=== PATIENT | female | born 1960 | race Caucasian/White ===

== ENCOUNTER → 2016-12-16 | Outpatient (CLI) | payer BC ==
[~2016-12-16] MED LIST: BNC5 PO; CHOL1TAB42 PO; CHOL20009 PO; COCO1OIL2 PO; DICLOFENAC PO; FENO1TAB PO; FEXO1TAB49 PO; MAGN1CAP2 PO; MULTTAB58 PO; OMEGCAP2 PO; PYRI100T4 PO; VENL-271 PO
--- NOTE | 2016-12-16 10:30 | DIAGNOSTIC IMAGING REPORT ---
LEFT KNEE 1 OR 2 VIEWS ROUTINE CLINICAL HISTORY: Left knee pain COMPARISON: None. DISCUSSION: There are mild osteophytic changes present. There are no acute fractures. There are no erosive or destructive changes. IMPRESSION: Mild osteoarthritic change. Electronically signed by: Ernie Tyson M.D. 12/16/2016 10:29 AM Dictated Date/Time: 12/16/2016 10:28 AM
--- NOTE | 2016-12-16 10:32 | DIAGNOSTIC IMAGING REPORT ---
LEFT HIP UNILATERAL 2 VIEWS CLINICAL HISTORY: Left hip pain COMPARISON: None. DISCUSSION: 2 views reveal no fractures. Minimal degenerative changes are present. No destructive lesions are visualized. IMPRESSION: 1. Minimal degenerative change. No destructive lesions are visualized. Electronically signed by: Ernie Tyson M.D. 12/16/2016 10:31 AM Dictated Date/Time: 12/16/2016 10:30 AM
[2016-12-16 12:31] LABS: CHOLESTEROL/HDL RATIO 4.4
== END | disposition home or self-care (01) ==
LOC: C.RAD 09:46
PROVIDERS: ATTEND Family Medicine
DX: M25.562 Pain in left knee (principal)

== ENCOUNTER → 2017-01-03 | Outpatient (CLI) | payer BC ==
--- NOTE | 2017-01-03 13:24 | MAMMOGRAPHY REPORT ---
BILATERAL DIGITAL SCREENING MAMMOGRAM TOMOSYNTHESIS WITH CAD: 01/03/2017 TECHNIQUE: Breast tomosynthesis in addition to standard 2D mammography was performed. Current study was also evaluated with a Computer Aided Detection (CAD) system. COMPARISON: Comparison is made to exams dated: 01/01/2016 mammogram, 12/31/2014 mammogram, 12/25/2012 m ammogram, 12/20/2011 mammogram, 12/23/2011 mammogram, and 10/27/2010 mammogram - [facility] enter. BREAST COMPOSITION: There are scattered areas of fibroglandular density in both breasts. FINDINGS: No suspicious masses, calcifications, or areas of architectural distortion are noted in e ither breast. There has been no significant interval change compared to prior exams. IMPRESSION: ACR BI-RADS CATEGORY 1: NEGATIVE There is no mammographic evidence of malignancy. A 1 year screening mammogram is recommended. The p atient will receive written notification of the results. Approximately 10% of breast cancers are not detected with mammography. A negative mammographic repor t should not delay biopsy if a clinically suggestive mass is present. Lizzeth Haddad M.D. ah/:01/03/2017 10:01:20 Chisel Mortiser Operator: Brianna GARCIA(Robert)(Balwinder), [facility] letter sent: Normal 1/2 BI-RADS Code: ACR BI-RADS Category 1: Negative
== END | disposition home or self-care (01) ==
LOC: C.MAMM 08:59
PROVIDERS: ATTEND Obstetrics & Gynecology
DX: Z12.31 Encounter for screening mammogram for malignant neoplasm of breast (principal)

== ENCOUNTER → 2017-03-14 | Outpatient (CLI) | payer BC | END | disposition home or self-care (01) | LOC: C.RDSM 12:13 | PROVIDERS: ATTEND Family Medicine Sports Medicine | DX: M25.511 Pain in right shoulder (principal) ==

== ENCOUNTER → 2017-05-02 | Outpatient (CLI) | payer BC ==
--- NOTE | 2017-05-02 11:25 | DIAGNOSTIC IMAGING REPORT ---
MRI right shoulder RIGHT UPPER EXT JOINT WITHOUT CLINICAL HISTORY: R SHOULDER PAIN,ROTATOR CUFF STRAIN Right pain TECHNIQUE: MRI multi axial acquisition COMPARISON STUDY: None FINDINGS: Signal characteristics the osseous structures indicate hypertrophic change of the acromioclavicular joint. Discrete mild impingement upon the supraspinatus musculotendinous junction. Findings of moderate tendinopathy involving the supraspinatus tendon. There is a small partial thickness tear of its inferior surface. The subscapularis and infraspinatus tendons appear unremarkable. Evaluation of the labrum shows degenerative change of the anterior margin of the glenoid labrum with a partial thickness tear. Posterior labrum as well as inferior labrum does appear unremarkable. Biceps tendon is intact within the bicipital groove. There is a small amount of fluid surrounding the biceps tendon. IMPRESSION: 1. Hypertrophic change acromioclavicular joint creating mild impingement upon the supraspinatus scattered tendinous junction. 2. Moderate tendinopathy of the supraspinatus with a small partial thickness tear inferior surface. 3. Moderate deterioration anterior glenoid labrum with a superimposed partial tear at its superior aspect. 4. Small joint effusion. Electronically signed by: Johan Dior M.D. 05/02/2017 11:24 AM Dictated Date/Time: 05/02/2017 11:13 AM
== END | disposition home or self-care (01) ==
LOC: C.MRI 09:53
PROVIDERS: ATTEND Family Medicine Sports Medicine
DX: S46.011D Strain of muscle(s) and tendon(s) of the rotator cuff of right shoulder, subsequent encounter (principal); M25.511 Pain in right shoulder; X58.XXXA Exposure to other specified factors, initial encounter

== ENCOUNTER 2017-06-26 10:01 | Day surgery (SDC) | payer BC ==
[2017-06-21 12:44] LABS: MEAN CELL VOLUME 93.7 fL (80-100); MEAN CORPUSCULAR HEMOGLOBIN 30.9 pg (25-34); MEAN PLATELET VOLUME 8.9 fL (7.4-10.4); PLATELET COUNT 466 K/uL (130-400); RED BLOOD COUNT 4.27 M/uL (4.2-5.4); WHITE BLOOD COUNT 5.81 K/uL (4.8-10.8)
[~2017-06-26] VITALS: Ht 172.7 cm; Wt 90.9 kg
[~2017-06-26 10:01] MED LIST changes: +BUPIVACAINE/EPINEPHRINE 0.25% 10 ML VIAL ONE; -CHOL20009 PO; +CLINDAMYCIN 600 MG/54 ML D5W 54 ML IV SCH; +CLONIDINE HCL 100 MCG/ML SYRINGE ONE; +LACTATED RINGER'S 1000ML 1,000 ML IV SCH; +LACTATED RINGER'S 1000ML IV SCH; -MAGN1CAP2 PO; -MULTTAB58 PO; -OMEGCAP2 PO; -PYRI100T4 PO; +ROPIVACAINE 0.5% 5 MG/ML 30 ML VIAL ONE
[2017-06-26 10:40] VITALS: BP 130/79; PULSE 80; TEMP 36.8; O2SAT 95; Ht 172.7 cm; Wt 90.9 kg
[2017-06-26] MEDS ORDERED: FENTANYL CITRATE INJ 50 MCG/1 ML 2 ML VIAL ONE ×4 (11:02→15:49)
[2017-06-26] MEDS ORDERED: MIDAZOLAM HCL 1 MG/ML 2ML VIAL ONE (11:02)
[2017-06-26] MEDS ORDERED: SCOPOLAMINE 1.5 MG TDSY TD ONE (11:53)
[2017-06-26] MEDS ORDERED: EpINEphrine HCL INJ 1 MG/ML 5ML SYRINGE ONE (12:06)
[2017-06-26] MEDS ORDERED: SODIUM CHLORIDE 0.9% PF 50 ML VIAL ONE (12:18)
[2017-06-26] MEDS ORDERED: SODIUM CHLORIDE 0.9% INJ 10 ML VIAL ONE (12:18)
[2017-06-26] MEDS ORDERED: DEXAMETHASONE SOD INJ 4 MG/ML VIAL ONE (12:46)
[2017-06-26] MEDS ORDERED: GLYCOPYRROLATE INJ 0.2 MG/ML VIAL ONE (12:46)
[2017-06-26] MEDS ORDERED: NEOSTIGMINE METHYLSULFATE 5 MG/5 ML SYR ONE (12:46)
[2017-06-26] MEDS ORDERED: ROCURONIUM BROMIDE 10 MG/ML 5 ML VIAL ONE (12:46)
[2017-06-26] MEDS ORDERED: ONDANSETRON INJ 2 MG/ML 2 ML VIAL ONE (12:46)
[2017-06-26] MEDS ORDERED: PROPOFOL IV EMULSION 10 MG/ML 20 ML VIAL IV ONE (12:46)
--- NOTE | 2017-06-26 12:47 | History & Physical Bridge Note ---
H&P Re-Evaluation Bridge Note: I have examined the patient, reviewed the History & Physical and in the interval since the performance of the History & Physical I have noted the following changes of clinical significance: No changes noted
[2017-06-26] MEDS ORDERED: PHENYLEPHRINE 100MCG/ML 5ML SYR ONE (14:21)
[2017-06-26] MEDS ORDERED: KETOROLAC TROMETHAMINE 30 MG/ML VIAL ONE (14:32)
[2017-06-26] MEDS ORDERED: HYDROmorphone INJ 2 MG/ML SYR/VIAL ONE (14:32)
[2017-06-26] MEDS ORDERED: ATROPINE SULFATE 0.1 MG/ML 5ML SYR IV PRN (15:15)
[2017-06-26] MEDS ORDERED: FENTANYL CITRATE INJ 50 MCG/1 ML 2 ML VIAL IV PRN (15:15)
[2017-06-26] MEDS ORDERED: NALOXONE HCL 0.4 MG/1 ML VIAL/CARP IV PRN (15:15)
[2017-06-26] MEDS ORDERED: EpHEDrine SULFATE INJ 50 MG/ML AMP IV PRN (15:15)
[2017-06-26] MEDS ORDERED: MEPERIDINE HCL 25 MG/ML CARP IV PRN (15:15)
[2017-06-26] MEDS ORDERED: LABETALOL HCL IV 5 MG/ML 20ML IV PRN (15:15)
[2017-06-26] MEDS ORDERED: ONDANSETRON INJ 2 MG/ML 2 ML VIAL IV PRN ×2 (15:15→15:30)
[2017-06-26] MEDS ORDERED: FLUMAZENIL 0.1 MG/1 ML 10 ML VIAL IV PRN (15:15)
[2017-06-26] MEDS ORDERED: HYDROmorphone INJ 2 MG/ML SYR/VIAL IV PRN (15:15)
[2017-06-26] MEDS ORDERED: PHENYLEPHRINE 100MCG/ML 5ML SYR IV PRN (15:15)
[2017-06-26] MEDS ORDERED: OXYCODONE/ACETAMINOPHEN 5-325 TAB PO PRN (15:30)
[2017-06-26] MEDS ORDERED: HYDROmorphone INJ 0.5 MG/0.5 ML SYR IV PRN (15:30)
--- NOTE | 2017-06-26 15:38 | [facility] Post Operative Brief Note ---
Immediate Operative Summary Operative Date Jun 26, 2017. 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 2) Loose Body Removal. 3) Open Distal Clavicle Excision. 4) Biceps Tenotomy. 5) Subacromial Decompression. 6) Exam under anesthesia. Surgeon Dr Smith Building Coordinator Surgeon(s) Bisi Rosario - Fellow Estimated Blood Loss 25ML Findings As above. Fluids (cc crystalloids) 1200 Specimens A. Distal clavicle Drains n/a Anesthesia GET Complication(s) None Disposition Recovery Room / PACU (Stable)
--- NOTE | 2017-06-26 15:44 | Discharge Instructions ---
Discharge Instructions Date of Service Jun 26, 2017. Admission Reason for Admission: Rt Shoulder Impingement, Long Head Biceps Tendo; Discharge Discharge Diagnosis / Problem: S/P R shoulder arthroscopy with debridement & open distal clavicle excision Discharge Goals Goal(s): Decrease discomfort, Improve function, Increase independence Activity Recommendations Activity Limitations: per Instructions/Follow-up section May Resume Sexual Activity: when tolerated Shower/Bathe: may shower/bathe in 3 days Driving or Machine Use: Not while on Narcotics or wearing sling . Instructions / Follow-Up Instructions / Follow-Up Dr. Smith 10-15 days. PT in 2-3 days. Current Hospital Diet Patient's current hospital diet: Regular Diet Discharge Diet Recommended Diet: Regular Diet Procedures Procedures Performed: 1) Right Shoulder Arthroscopy Extensive Debridement. 2) Loose Body Removal. 3) Open Distal Clavicle Excision. 4) Biceps Tenotomy. 5) Subacromial Decompression. 6) Exam under anesthesia. Pending Studies Studies pending at discharge: no Medical Emergencies . Who to Call and When: Medical Emergencies: If at any time you feel your situation is an emergency, please call 911 immediately. . Non-Emergent Contact Non-Emergency issues call your: Surgeon Call Non-Emergent contact if: temperature is above 101.5, your pain is not controlled, wound has increased drainage, wound has increased redness . "Provider Documentation" section prepared by Gulshan Smith. . VTE Core Measure Inpt VTE Proph given/why not?: T.E.D. Stockings
--- NOTE | 2017-06-26 15:45 | [facility] Operative Report ---
Operative Report Operative Date Jun 26, 2017. Pre-Operative Diagnosis Right Shoulder Impingement, Longhead Biceps Tendinosis, and AC Joint Osteoarthritis Post-Operative Diagnosis Right Shoulder Impingement Longhead Biceps Tendinosis, SLAP tear and AC Joint Osteoarthritis, Loose Body, Chondramalasia Procedure(s) Performed 1) Right Shoulder Arthroscopy Extensive Debridement. 2) Loose Body Removal. 3) Open Distal Clavicle Excision. 4) Biceps Tenotomy. 5) Subacromial Decompression. 6) Exam under anesthesia. Surgeon Dr Smith Adaptive Physical Educator Surgeon(s) Bisi Rosario MD - Fellow Estimated Blood Loss 25ML Findings The Right shoulder was then examined under anesthesia and it exhibited: Forward flexion and abduction to 170; external rotation 40. There was no noted instability. Posterior and anterior translation was 1+ and they had no sulcus sign and was symmetric to their other side. The diagnostic arthroscopy commenced with the following findings: 1. The biceps anchor showed a type II SLAP tear. 2. The anterior labrum showed fraying, but well adhered to the glenoid. 3. The inferior labrum showed fraying. 4. The inferior pouch showed multiple loose bodies of varying sizes from large to small. 5. The posterior labrum showed fraying. 6. The articular surface of the glenoid had diffuse Outerbridge type II changes. 7. The articular surface of humeral head had an area anteriorly with 50% loss of articular cartilage, Outerbridge type II changes proximally 5 x 15 mm. 8. The long Head of the Biceps was injected at its insertion on labrum. 9. The Subscapularis tendon was intact. 10. The Supraspinatus tendon was intact. 11. The Infraspinatus and Teres Minor were intact with minimal fraying. 12. The Subacromial space showed bursitis and a large irregular bony spur. Degenerative changes distal clavicle/AC joint. Fluids 1200 Specimens A. Distal clavicle, right Drains n/a Anesthesia GET Complication(s) None Disposition Recovery Room / PACU (Stable) Indications This is a pleasant 56-year-old female who has been having long-standing right shoulder pain that has failed conservative management. They have MRI and clinical findings suggestive of long head of the biceps tendinosis, and AC joint OA, and impingement. After a lengthy discussion regarding their options of conservative versus operative management, they have elected to proceed with surgery. The risks of surgery were discussed and include but not limited to: Infection, bleeding, nerve damage, continued pain, progression of arthritis, stiffness, decreased level of activity, and deep vein thrombosis. The patient understood all of their options and the risks of surgery and would like to proceed. The informed consent was signed. Description of Procedure The patient was taken to the operating room and following administration of her interscalene nerve block and general anesthetic, a multidisciplinary time-out was performed identifying my initials on the right shoulder as the correct and operative limb. The patient was then placed in beach chair position with all of their bony prominences well-padded. They were then prepped and draped in the usual orthopedic sterile fashion. All of the bony landmarks were marked as well as the planned incisions. The planned incisions were injected with a 50:50 mixture of 0.5% Marcaine plain and 1% Lidocaine with Epinephrine for a total of 8 cc. Then using a spinal needle which was placed intra-articularly into the glenohumeral joint and insufflated to 35 cc and there was noted appropriate back flow, an additional 15 cc were placed. The standard posterior portal was made with an 11-blade. Trocar was introduced into the glenohumeral joint in the standard fashion. Using a spinal needle, the anterior portal was placed lateral to the coracoid under direct visualization between the Long Head of the Biceps and Subscapularis. A 7mm cannula was then placed. The intra-articular portion of shoulder was addressed first with debriding any fraying from the labrum and removing any synovitis. The labrum was probed and found to be intact. The loose bodies in the pouch were removed with mechanical shaver as they were encountered. The loose articular cartilage on the humeral head was also removed with mechanical shaver back to stable margin. Due to the traction of the biceps on the superior labrum and the SLAP tear, it was decided to perform a biceps tenotomy and the long head of biceps remained within the bicipital groove after completion in the standard fashion. The arthroscope had also been removed from the posterior portal and placed anteriorly for better posterior visualization. Additional debridement of the posterior and superior labrum and humeral head was also performed again back to a stable rim. The arthroscope was then placed subacromially. There was bursitis noted. A lateral portal was created under direct visualization with a spinal needle. Once the bursitis was removed, the bursal side of the rotator cuff was intact. There was a large irregular bony spur. A subacromial decompression was performed in the standard fashion using bone block technique. All of the instruments were removed. Our attention was drawn to the AC joint and making a 3 cm incision in-line with the anterior portal incision was made and carried down to the Superior AC joint ligament. A longitudinal incision was made in-line with the fibers of the superior AC joint ligament. The posterior and anterior aspect of the clavicle was exposed and using a sagittal saw the distal 7 mm was removed. A rasp was used to smooth out the edges. The wound was copiously irrigated. Bone wax was placed along the exposed bone. There was adequate space. The Superior AC joint ligament was closed with 0 Vicryl. The subcutaneous layer was closed with 3-0 Vicryl. The skin was closed with a running subcuticular stitch using 3-0 Prolene. Steri strips were placed over top. The portal sites were closed with 3-0 Prolene in a standard fashion. Xeroform was placed overtop followed by 4 x 4's, ABDs, and foam tape. The patient was placed in a sling. The sponge and needle counts were correct. POSTOPERATIVE INSTRUCTIONS: The patient will follow-up with physical therapy in two days. The patient will wear sling out in public and for comfort only. The patient will follow-up with me in 10 to 15 days. I attest to the content of the Intraoperative Record and any orders documented therein. Any exceptions are noted below.
--- NOTE | 2017-06-26 15:52 | [facility] Operative Report ---
Operative Report Operative Date Jun 26, 2017. Pre-Operative Diagnosis Right Shoulder Impingement, Longhead Biceps Tendinosis, and AC Joint Osteoarthritis Post-Operative Diagnosis Right Shoulder Impingement Longhead Biceps Tendinosis, SLAP tear and AC Joint Osteoarthritis, Loose Body, Chondramalasia Procedure(s) Performed 1) Right Shoulder Arthroscopy Extensive Debridement. 2) Loose Body Removal. 3) Open Distal Clavicle Excision. 4) Biceps Tenotomy. 5) Subacromial Decompression. 6) Exam under anesthesia. Surgeon Dr Smith [employer] Principal Surgeon(s) Bisi Rosario MD - Fellow Estimated Blood Loss 25ML Findings Multiple loose bodies in Right shoulder joint. Fluids (cc crystalloids) 1200 Specimens A. Distal clavicle, right Complication(s) None Disposition Recovery Room / PACU I attest to the content of the Intraoperative Record and any orders documented therein. Any exceptions are noted below.
[2017-06-26 16:47] VITALS: BP 125/74; PULSE 73; TEMP 36.5; O2SAT 94
[2017-06-26 17:30] VITALS: BP 132/85; PULSE 83; TEMP 36.9; O2SAT 94
--- NOTE | 2017-06-26 17:53 | Anesthesiology Progress Note ---
Anesthesia Post Op Note Date & Time Jun 26, 2017 at 17:52 Vital Signs Pain Intensity: 1 Vital Signs Past 12 Hours Date Time Temp Pulse Resp B/P (MAP) Pulse Ox O2 Delivery O2 Flow Rate FiO2 06/26/17 16:40 36.4 76 16 117/82 96 Nasal Cannula 3 06/26/17 16:30 79 16 116/85 96 Oxymask 5 06/26/17 16:20 84 16 144/81 95 Oxymask 10 06/26/17 16:10 72 16 150/81 94 Oxymask 15 06/26/17 16:06 36.6 71 16 141/74 95 Oxymask 15 06/26/17 10:40 36.8 80 20 130/79 (96) 95 Room Air Notes Mental Status: alert / awake / arousable, participated in evaluation Pt Amnestic to Procedure: Yes Nausea / Vomiting: adequately controlled Pain: adequately controlled Airway Patency, RR, SpO2: stable & adequate BP & HR: stable & adequate Hydration State: stable & adequate Anesthetic Complications: no major complications apparent
[2017-06-26 18:00] VITALS: BP 129/71; PULSE 86; TEMP 36.4; O2SAT 94
== END 2017-06-26 18:20 | disposition home or self-care (01) ==
LOC: C.ACU 10:01
PROVIDERS: ATTEND Orthopaedic Surgery Sports Medicine
DX: M75.41 Impingement syndrome of right shoulder (principal); M75.21 Bicipital tendinitis, right shoulder; M19.011 Primary osteoarthritis, right shoulder; M94.211 Chondromalacia, right shoulder; S43.431A Superior glenoid labrum lesion of right shoulder, initial encounter; X58.XXXA Exposure to other specified factors, initial encounter; I10 Essential (primary) hypertension; E78.5 Hyperlipidemia, unspecified; K21.9 Gastro-esophageal reflux disease without esophagitis; E66.9 Obesity, unspecified; Z79.899 Other long term (current) drug therapy

== ENCOUNTER → 2018-02-06 | Outpatient (CLI) | payer OTHER ==
[~2018-02-06] MED LIST changes: -BUPIVACAINE/EPINEPHRINE 0.25% 10 ML VIAL ONE; -CLINDAMYCIN 600 MG/54 ML D5W 54 ML IV SCH; -CLONIDINE HCL 100 MCG/ML SYRINGE ONE; -LACTATED RINGER'S 1000ML 1,000 ML IV SCH; -LACTATED RINGER'S 1000ML IV SCH; -ROPIVACAINE 0.5% 5 MG/ML 30 ML VIAL ONE
--- NOTE | 2018-02-06 14:58 | MAMMOGRAPHY REPORT ---
BILATERAL DIGITAL SCREENING MAMMOGRAM TOMOSYNTHESIS WITH CAD: 02/06/2018 CLINICAL HISTORY: Routine screening. Patient has no complaints. TECHNIQUE: Breast tomosynthesis in addition to standard 2D mammography was performed. Current study was also evaluated with a Computer Aided Detection (CAD) system. COMPARISON: Comparison is made to exams dated: 01/03/2017 mammogram, 01/01/2016 mammogram, 12/31/2014 m ammogram, 12/26/2013 mammogram, 12/25/2012 mammogram, and 12/23/2011 mammogram - [facility] er. BREAST COMPOSITION: There are scattered areas of fibroglandular density in both breasts. FINDINGS: No suspicious masses, calcifications, or areas of architectural distortion are noted in ei ther breast. There has been no significant interval change compared to prior exams. IMPRESSION: ACR BI-RADS CATEGORY 1: NEGATIVE There is no mammographic evidence of malignancy. A 1 year screening mammogram is recommended. The pa tient will receive written notification of the results. Approximately 10% of breast cancers are not detected with mammography. A negative mammographic report should not delay biopsy if a clinically suggestive mass is present. Lizzeth Haddad M.D. ah/:02/06/2018 14:41:25 Environmental Services Manager: Benita GARCIA(Robert)(M), [facility] letter sent: Normal 1/2 BI-RADS Code: ACR BI-RADS Category 1: Negative
== END | disposition home or self-care (01) ==
LOC: C.MAMM 13:43
PROVIDERS: ATTEND Family Medicine
DX: Z12.31 Encounter for screening mammogram for malignant neoplasm of breast (principal)